=== PATIENT | female | born 1940 | race Caucasian/White ===

== ENCOUNTER → 2017-01-12 | Outpatient (CLI) | payer OTHER, MEDICARE | LOC: BHFA 11:00 | PROVIDERS: ATTEND Internal Medicine Interventional Cardiology | DX: R00.2 Palpitations (principal) ==

== ENCOUNTER → 2018-09-08 | Outpatient (CLI) | payer OTHER, MEDICARE | LOC: FIMAGING 12:56 | PROVIDERS: ATTEND Registered Nurse | DX: S09.90XA Unspecified injury of head, initial encounter (principal); M25.511 Pain in right shoulder; R55 Syncope and collapse; M50.322 Other cervical disc degeneration at C5-C6 level ==